=== PATIENT | male | born 1960 | race Caucasian/White ===

== ENCOUNTER → 2018-01-11 | Outpatient (CLI) | payer OTHER ==
[~2018-01-11] VITALS: Ht 175.3 cm; Wt 93.4 kg
[~2018-01-11] MED LIST: ASPIR 8181 MG PO; AVELOX400 MG PO; FISH OIL 1,001000 M2 PO; LIPITOR 20 MG T20 M1 PO; LOPRESSOR50 PO; PERCOCET 5-3251 EACH PO; UNICOMPLEX M TA1 TA1 PO; VITAMIN D5000 UNIT PO
[2018-01-11 09:50] LABS: HEMATOCRIT 44.1 % (42.0-52.0); HEMOGLOBIN 14.4 gm/dL (14.0-18.0); MCH 28.9 pg (26.0-34.0); MCHC 32.7 g/dL (28.0-37.0); MCV 88.4 fL (80.0-100.0); MPV 9.1 fl. (7.2-11.1); RBC 4.99 mil/uL (4.50-6.00); WBC 7.9 thou/uL (4.0-11.0)
[2018-01-11 09:53] VITALS: BP 136/68
[2018-01-11 10:00] LABS: ANION GAP 6 mmol/L (7-16); BUN 20 mg/dL (7-18); CALCIUM 8.8 mg/dL (8.5-10.1); CHLORIDE 104 mmol/L (98-107); CO2 28 mmol/L (21-32); GLUCOSE 97 mg/dL (70-99); POTASSIUM 3.9 mmol/L (3.5-5.1); SODIUM 138 mmol/L (136-145)
[2018-01-11 10:04] LABS: ALBUMIN 3.8 g/dL (3.4-5.0); ALKALINE PHOSPHATASE 54 U/L (46-116); CHOLESTEROL 202 mg/dL (<200); HDL CHOLESTEROL 43 mg/dL (>40); LDL CHOLESTEROL 103 mg/dL (<100); SGOT 18 U/L (15-37); SGPT 39 U/L (30-65); TC:HDL 4.7 Ratio (Not establshd); TOTAL BILIRUBIN 0.5 mg/dL (<0.1-1.0); TRIGLYCERIDE 280 mg/dL (<150); VLDL 56 mg/dL (<40)
[2018-01-11 10:08] LABS: SERUM ASSESSMENT Clear
[2018-01-11 10:14] LABS: APTT 30.8 Seconds (25.0-31.3); PROTIME 10.2 Seconds (9.20-11.50)
[2018-01-11 13:55] VITALS: BP 149/83
[2018-01-11 14:20] VITALS: BP 143/92
[2018-01-11 14:47] VITALS: BP 143/92
[2018-01-11 15:20] VITALS: BP 135/94
[2018-01-11 15:49] VITALS: BP 135/94
--- NOTE | 2018-01-11 17:49 | EKG ---
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1960 Requested By: Suzanne Jack Order Number: [id number] Naseem MD: Jordan Llanes Measurements Intervals [place] Rate: 55 P: 23 OK: 141 QRS: -34 QRSD: 106 T: 48 QT: 464 QTc: 444 Interpretive Statements Sinus rhythm Left axis deviation RSR' in V1 or V2, probably normal variant Minimal ST elevation, anterolateral leads, consider early repolarization Compared to ECG 06/19/2010 19:40:00 Left-axis deviation now present RSR' in V1 or V2 now present ST (T wave) deviation now present Incomplete right bundle-branch block no longer present Electronically Signed On 01-11-2018 17:49:15 WINDOW CLERK by Jordan Llanes [email or web address] <ELECTRONICALLY SIGNED> By: Jordan Llanes MD, FACC 01/11/18 1749 00 100 Jordan Llanes MD, FAC /EPI
--- NOTE | 2018-01-15 17:07 | CARD ---
[address] [address] CARDIAC CATH REPORT Name: SUZANNE CLAIRE Room: [facility]#: [id number] Admission: 01/11/18 Attend Phys: Suzanne Jack MD, Discharge: Date of : 58 Report #: [id number] THIS REPORT FOR: //name// APPROVED REPORT Study performed: 01/11/2018 12:41:34 Patient Details Patient Status: Out-Patient Room #: The patient is a 57 year-old male Event Personnel Suzanne Jack Laboratory Asst, Annabel Das RN Assistant Baseball Coach, Rochelle Jimenez, Moe Kyle (R) Scrub Procedures Performed Art Access - R femoral artery* , Selective Right and Left Coronary Angiography;Ascending aortography Indication Dyspnea Risk Factors Hypercholesterolemia, Hypertension Procedure Narrative The patient was brought electively to the Cardiac Catheterization Laboratory and was prepped and draped in a sterile manner. The right femoral was infiltrated with 2% Lidocaine subcutaneous anesthesia. A Crestline 6 FR sheath was inserted into the right femoral artery. Coronary angiography was performed using coronary diagnostic catheters. The right coronary system was accessed and visualized with a 6fr JR 4 catheter. The left coronary system was accessed and visualized with a 6fr JL 4 catheter. An aortogram of the ascending aorta was performed. Pre-demployment femoral angiogram was performed . Closure device was deployed with a 6 Fr MynxGrip 6/7F. The patient tolerated the procedure well and there were no complications associated with the procedure. There was no hematoma. Intraoperative Conscious Sedation Sedation start time: 13:00 Case end Time: 13:34 Fentanyl 25.0 mcg Versed 2 mg Fluoro Time: 10 [place] [address] CARDIAC CATH REPORT Name: SUZANNE CLAIRE Room: [facility]#: [id number] Admission: 01/11/18 Attend Phys: Suzanne Jack MD, Discharge: Date of : 58 Report #: [id number] Dose: DAP 80418 cGycm2 987.05 mGy Contrast Type and Amount: Visipaque 207 ml Coronary Angiography The patient's coronary anatomy is right dominant. Diagnostic Cath Left Main 0% narrowing LAD 40% mid LAD narrowing with 30% first diagonal narrowing Circumflex tandem 40% mid Cx stenoses Right Coronary large dominant vessel with 20% distal narrowing Left Ventriculography Left Ventriculography was not performed. Ascending aortography demonstrated moderate dilatation the ascending aorta, calcification with markedly decreased mobility of the aortic leaflets, trace of AI Hemodynamics The aortic pressure is 134/74 mmHg with a mean of mmHg. Conclusion 1 modest CAD characterized by a) 40% mid LAD narrowing with 30% first diagonal narrrowing b)20% distal RCA narrowing c) tandem 40% mid CX stenoses 2 Moderate dilatation of the ascending aorta with marked calcification and decreased mobiltily of the aortic leaflets; Trace of AI 3) normal systemic pressure Recommendations The patient will require aortic valve replacement. <ELECTRONICALLY SIGNED> By: Suzanne Jack MD, [facility] 01/15/181706 06 06Suzanne Jack MD, FAC /INF
== END | disposition home or self-care (01) ==
LOC: M.CL 09:04 → M.TBA-CV 13:49 → M.CL 13:49
PROVIDERS: Internal Medicine
DX: I25.10 Atherosclerotic heart disease of native coronary artery without angina pectoris (principal); I77.819 Aortic ectasia, unspecified site; I10 Essential (primary) hypertension; E78.00 Pure hypercholesterolemia, unspecified; F17.210 Nicotine dependence, cigarettes, uncomplicated; Z98.890 Other specified postprocedural states; Z79.82 Long term (current) use of aspirin; Z79.899 Other long term (current) drug therapy; Z79.01 Long term (current) use of anticoagulants

== ENCOUNTER → 2018-01-26 | Outpatient (CLI) | payer OTHER ==
[2018-01-26 16:21] LABS: ABSOLUTE BASOPHILS 0.1 thou/uL (0.0-0.2); ABSOLUTE EOSINOPHILS 0.3 thou/uL (0.0-0.7); ABSOLUTE LYMPHOCYTES 3.2 thou/uL (0.8-5.3); ABSOLUTE MONOCYTES 0.8 thou/uL (0.0-1.2); ABSOLUTE NEUTROPHILS 5.4 thou/uL (1.6-8.1); BASOPHILS 0.9 %; EOSINOPHILS 3.2 %; HEMATOCRIT 36.7 % (42.0-52.0); HEMOGLOBIN 12.4 gm/dL (14.0-18.0); LYMPHOCYTES 32.3 %; MCH 29.4 pg (26.0-34.0); MCHC 33.7 g/dL (28.0-37.0); MCV 87.5 fL (80.0-100.0); MONOCYTES 8.1 %; MPV 8.2 fl. (7.2-11.1); NUCLEATED RBCS 0 /100WBC; PLATELET COUNT* 250 thou/uL (150-400); POLYS 55.5 %; WBC 9.8 thou/uL (4.0-11.0)
== END ==
LOC: M.LAB 16:11
PROVIDERS: Internal Medicine
DX: R19.5 Other fecal abnormalities (principal)

== ENCOUNTER 2018-06-10 21:58 | Emergency (ER) | payer OTHER ==
[~2018-06-10] VITALS: Ht 175.3 cm; Wt 100.2 kg
[~2018-06-10 21:58] MED LIST changes: +ADULT LOW DOSE81 MG PO; +CARDIZEM30 MG PO; +ELIQUIS5 MG PO; +PACERONE 200 M200 M1 PO; +PROTONIX40 M1 PO
[2018-06-10] MEDS ORDERED: COUMADIN 5 MG TA5 M1 PO (22:12)
[2018-06-10 22:56] LABS: ABSOLUTE BASOPHILS 0.1 thou/uL (0.0-0.2); ABSOLUTE EOSINOPHILS 0.3 thou/uL (0.0-0.7); ABSOLUTE LYMPHOCYTES 2.4 thou/uL (0.8-5.3); BASOPHILS 0.9 %; EOSINOPHILS 4.1 %; HEMATOCRIT 42.5 % (42.0-52.0); HEMOGLOBIN 13.7 gm/dL (14.0-18.0); LYMPHOCYTES 35.4 %; MCH 25.1 pg (26.0-34.0); MCHC 32.2 g/dL (28.0-37.0); MCV 77.9 fL (80.0-100.0); MPV 9.5 fl. (7.2-11.1); NUCLEATED RBCS 0 /100WBC; PLATELET COUNT* 209 thou/uL (150-400); POLYS 44.6 %; RBC 5.46 mil/uL (4.50-6.00); RDW-CV 20.7 % (10.5-14.5); WBC 6.7 thou/uL (4.0-11.0)
[2018-06-10 23:12] LABS: ANION GAP 6 mmol/L (7-16); BUN 16 mg/dL (7-18); CALCIUM 8.5 mg/dL (8.5-10.1); CHLORIDE 104 mmol/L (98-107); CO2 31 mmol/L (21-32); CREATININE 1.2 mg/dL (0.6-1.3); GLUCOSE 145 mg/dL (70-99); POTASSIUM 3.9 mmol/L (3.5-5.1); SODIUM 141 mmol/L (136-145); TROPONIN-I LEVEL <0.06 ng/mL (<0.06)
[2018-06-10 23:14] LABS: ALBUMIN 3.3 g/dL (3.4-5.0); ALKALINE PHOSPHATASE 62 U/L (46-116); NT-PRO BRAIN NAT PEPTIDE 104 pg/mL (<300); SGPT 20 U/L (30-65); TOTAL BILIRUBIN 0.2 mg/dL (<0.1-1.0); TOTAL PROTEIN 7.1 g/dL (6.4-8.2)
[2018-06-10 23:44] LABS: URINE BILIRUBIN NEGATIVE (Negative); URINE BLOOD NEGATIVE (Negative); URINE CLARITY CLEAR; URINE COLOR YELLOW; URINE GLUCOSE-RANDOM NEGATIVE (Negative); URINE KETONES NEGATIVE (Negative); URINE LEUKOCYTES-REFLEX NEGATIVE (Negative); URINE NITRITE-REFLEX NEGATIVE (Negative); URINE PROTEIN NEGATIVE (Negative); URINE UROBILINOGEN 0.2 E.U./dl (0.2-1.0)
[2018-06-10 23:59] LABS: SGOT 23 U/L (15-37)
[2018-06-11] MEDS ORDERED: PREDNISONE50 MG PO (00:21)
[2018-06-11] MEDS ORDERED: VALTREX1000 MG PO (00:21)
[2018-06-11 00:22] LABS: INR 1.9; PROTIME 19.5 Seconds (9.20-11.50)
[2018-06-11 00:31] LABS: ANISOCYTOSIS 2+; PLATELET ESTIMATE ADEQUATE; POLYCHROMASIA 1+
[2018-06-11 00:54] VITALS: BP 161/86
--- NOTE | 2018-06-11 12:19 | EKG ---
[place] [address] ELECTROCARDIOGRAM REPORT Name: SU[facility]NE CLAIRE [id number] Admission: 06/10/18 Attend Phys: Discharge: 06/11/18 Date of : 58 Report #: [id number] THIS REPORT FOR: //name// [facility] ED Test Date: 2018-06-10 Test Time: 22:04:33 Pat Name: SUZANNE CLAIRE Department: Room: Gender: M Ups Driver: TIFFANY : 1960 Requested By: Kinza Monteiro Order Number: [id number] MD: Eb Mcgowan Measurements Intervals [place] Rate: 58 P: 40 SC: 170 QRS: -32 QRSD: 103 T: 53 QT: 454 QTc: 446 Interpretive Statements Sinus rhythm Abnormal R-wave progression, late transition Inferior infarct, old Compared to ECG 01/11/2018 10:01:07 no change Electronically Signed On 06-11-2018 12:19:30 CDT by Eb Mcgowan [email or web address] <ELECTRONICALLY SIGNED> By: Eb Mcgowan MD, [facility] 06/11/18 1219 03 03 Eb Mcgowan MD, [facility] /EPI
== END 2018-06-11 00:54 | disposition home or self-care (01) ==
LOC: M.ERS 21:58
PROVIDERS: Personal Emergency Response Attendant
DX: G51.0 Bell's palsy (principal); I10 Essential (primary) hypertension; E78.5 Hyperlipidemia, unspecified; K21.9 Gastro-esophageal reflux disease without esophagitis; F17.210 Nicotine dependence, cigarettes, uncomplicated

== ENCOUNTER 2018-10-17 22:47 | Emergency (ER) | payer OTHER ==
[~2018-10-17] VITALS: Ht 170.2 cm; Wt 97.1 kg
[~2018-10-17 22:47] MED LIST changes: +COUMADIN 5 MG TA5 M1 PO; +PREDNISONE50 MG PO; +VALTREX1000 MG PO
[2018-10-17] MEDS ORDERED: CHANTIX1 MG PO (22:56)
[2018-10-17] MEDS ORDERED: BACTRIM DS TAB1 EACH PO (22:57)
[2018-10-17] MEDS ORDERED: TRIAMCINOLONE A80 G2 TOP (22:57)
[2018-10-17 23:38] LABS: ABSOLUTE BASOPHILS 0.1 thou/uL (0.0-0.2); ABSOLUTE EOSINOPHILS 0.3 thou/uL (0.0-0.7); ABSOLUTE LYMPHOCYTES 2.2 thou/uL (0.8-5.3); ABSOLUTE NEUTROPHILS 6.1 thou/uL (1.6-8.1); BASOPHILS 0.9 %; EOSINOPHILS 3.2 %; HEMATOCRIT 42.9 % (42.0-52.0); HEMOGLOBIN 14.4 gm/dL (14.0-18.0); LYMPHOCYTES 22.8 %; MCH 29.4 pg (26.0-34.0); MCHC 33.6 g/dL (28.0-37.0); MCV 87.6 fL (80.0-100.0); MPV 9.3 fl. (7.2-11.1); NUCLEATED RBCS 0 /100WBC; PLATELET COUNT* 231 thou/uL (150-400); POLYS 63.1 %; RBC 4.89 mil/uL (4.50-6.00); RDW-CV 13.8 % (10.5-14.5); WBC 9.7 thou/uL (4.0-11.0)
[2018-10-17 23:46] LABS: ANION GAP 8 mmol/L (7-16); BUN 22 mg/dL (7-18); CALCIUM 9.1 mg/dL (8.5-10.1); CHLORIDE 107 mmol/L (98-107); CO2 24 mmol/L (21-32); CREATININE 1.3 mg/dL (0.6-1.3); GLUCOSE 111 mg/dL (70-99); POTASSIUM 4.4 mmol/L (3.5-5.1); SODIUM 139 mmol/L (136-145)
[2018-10-17 23:51] LABS: ALBUMIN 3.4 g/dL (3.4-5.0); ALKALINE PHOSPHATASE 72 U/L (46-116); SGOT < 5 U/L (15-37); SGPT 20 U/L (30-65); TOTAL BILIRUBIN < 0.1 mg/dL (<0.1-1.0); TOTAL PROTEIN 6.9 g/dL (6.4-8.2)
[2018-10-18] MEDS ORDERED: HYDROCODON-ACE1 EAC8 PO (00:09)
[2018-10-18] MEDS ORDERED: CLEOCIN HCL150 M1 PO (00:09)
[2018-10-18 00:17] VITALS: BP 127/65
== END 2018-10-18 00:17 | disposition home or self-care (01) ==
LOC: M.ERS 22:47
PROVIDERS: Emergency Medicine
DX: L02.414 Cutaneous abscess of left upper limb (principal); F17.210 Nicotine dependence, cigarettes, uncomplicated; I10 Essential (primary) hypertension; E78.5 Hyperlipidemia, unspecified; K21.9 Gastro-esophageal reflux disease without esophagitis; Z98.890 Other specified postprocedural states